=== PATIENT | male | born 1970 | race Caucasian/White ===

== ENCOUNTER 2021-09-24 23:50 | Observation (INO) ==
[2021-09-25] MEDS ORDERED: hydrALAZINE 20 MG/1 ML VIAL IV STA (00:52)
[2021-09-25] MEDS ORDERED: ONDANSETRON 4 MG/2 ML VIAL IV STA (00:52)
[2021-09-25] MEDS ORDERED: NITROGLYCERIN 2% OINT 1 INCH/GM PACK TOP STA (00:52)
[2021-09-25] MEDS ORDERED: FUROSEMIDE 100 MG/10 ML VIAL IV STA (00:52)
[2021-09-25] MEDS ORDERED: methylPREDNISolone SOD SUC 125 MG/2 ML VIAL IV STA (00:52)
[2021-09-25] MEDS ORDERED: MORPHINE 2 MG/1 ML SYRINGE IV STA (00:52)
[2021-09-25] MEDS ORDERED: ASPIRIN 325 MG TABLET PO STA (00:52)
[2021-09-25] MEDS ORDERED: ALBUTEROL NEB SOLN 5 MG/ML 20 ML/BOTTLE CONT NEB SCH (01:00)
[2021-09-25 01:03] LABS: Basophils # 0.1 10*3/uL (0.0-0.2); Basophils % 0.7 % (0.0-0.8); Eosinophils # 0.1 10*3/uL (0.0-0.87); Eosinophils % 0.7 % (0.00-10.9); Hematocrit 42.6 VOL% (42.0-52.0); Hemoglobin 14.4 GM/DL (14.0-18.0); Immature Granulocytes % 0.7 %; Immature Granulocytes Absolute 0.08 #; Lymphocytes % 27.7 % (21.2-54.2); Mean Corpuscular HGB Conc 33.8 GM/DL (32-36); Mean Corpuscular Volume 86.2 FL (87-102); Mean Platelet Volume 9.8 FL (9.6-12.0); Monocytes # 0.6 10*3/uL (0.11-0.8); Monocytes % 5.3 % (1.7-12.7); Neutrophils % 64.9 % (38.7-73.9); Platelet Count 322 T/CUMM (130-400); Red Blood Count 4.94 MC/CUMM (3.8-5.5); White Blood Count 10.8 T/CUMM (4-12)
[2021-09-25 01:29] LABS: Alanine Aminotransferase 31 U/L (16-61); Albumin 4.1 G/DL (3.4-5.0); Alkaline Phosphatase 129 U/L (45-117); Aspartate Amino Transferase 31 U/L (0-37); Blood Urea Nitrogen 19 MG/DL (7-18); Calcium 9.1 MG/DL (8.5-10.1); Carbon Dioxide 27 MMOL/L (21-32); Chloride 103 MMOL/L (98-107); Glucose 140 MG/DL (74-106); Potassium 4.1 MMOL/L (3.5-5.1); Sodium 136 MMOL/L (136-145); Total Protein 8.1 G/DL (6.4-8.2)
[2021-09-25 02:11] LABS: Barbiturates Screen,Urine Negative (Negative); Benzodiazepines Screen,Urine Negative (Negative); Cannabinoid Screen,Urine Negative (Negative); Opiate Screen,Urine Negative (Negative); Phencyclidine Screen,Urine Negative (Negative)
[2021-09-25] MEDS ORDERED: MORPHINE 2 MG/1 ML SYRINGE IV PRN (03:05)
[2021-09-25] MEDS ORDERED: GLUCAGON 1 MG VIAL IM PRN (03:05)
[2021-09-25] MEDS ORDERED: ACETAMINOPHEN 325 MG TABLET PO PRN (03:05)
[2021-09-25] MEDS ORDERED: ONDANSETRON 4 MG/2 ML VIAL IV PRN (03:05)
[2021-09-25] MEDS ORDERED: ENOXAPARIN 80 MG/0.8 ML SYRINGE SUBCUT STA (03:13)
[2021-09-25] MEDS ORDERED: DEXTROSE 10% 250 ML BAG IV PRN (03:13)
[2021-09-25 03:40] LABS: Risk Ratio 10.29; Thyroid Stimulating Hormone 51.1 uIU/ml (0.358-3.74); VLDL Cholesterol 213.6 MG/DL
[2021-09-25 06:41] LABS: Free T4 (Free Thyroxine) 0.28 NG/DL (0.76-1.46)
[2021-09-25] MEDS ORDERED: ALBUTEROL/IPRATROPIUM 3 ML NEB RESP TX SCH (07:00)
[2021-09-25] MEDS ORDERED: ASPIRIN EC 81 MG TABLET PO SCH (09:00)
[2021-09-25] MEDS ORDERED: carvediloL 6.25 MG TABLET PO SCH (09:00)
[2021-09-25] MEDS ORDERED: PANTOPRAZOLE 40 MG TABLET PO SCH (09:00)
[2021-09-25 12:16] VITALS: BP 143/78
[2021-09-25] MEDS ORDERED: ATORVASTATIN 40 MG TABLET PO SCH (21:00)
[2021-09-25] MEDS ORDERED: OMEGA 3 ACID ETHYL ESTERS 1 GM CAPSULE PO SCH (21:00)
[2021-09-26] MEDS ORDERED: LEVOTHYROXINE 25 MCG TABLET PO SCH (06:30)
[2021-09-26] MEDS ORDERED: ROSUVASTATIN 20 MG TABLET PO SCH (21:00)
== END 2021-09-25 13:30 | disposition home or self-care (01) ==
LOC: EDBD → EDUNIT# → N.TELEN 23:50 → N.ED 23:50 → SUATTDRO 09-25 03:05 → N.TELEN 09-25 05:58
PROVIDERS: ADMIT Internal Medicine; ATTEND Hospitalist